=== PATIENT | male | born 1985 | race African-American/Black ===

== ENCOUNTER 2022-06-30 17:14 | Emergency (ER) | payer MEDICAID ==
[~2022-06-30] VITALS: Ht 175.3 cm; Wt 83.9 kg
[2022-06-30 19:40] VITALS: BP_SYST 146
--- NOTE | 2022-06-30 19:40 | NUR ---
Patient came in to the ER for evaluation of rt jaw pain since Thursday after falling over bushes. Patient does not recall the event. He says he fell but he cannot remember where he hit his face. Patient has difficulty opening his mouth and has a pain level of 9/10 PS . Took Tylenol without relief. Patient breathing easy, respirations even unlabored.
--- NOTE | 2022-06-30 19:46 | NUR ---
Patient triaged and placed in waiting room. VSS and patient appears in no acute distress at this time. Accompanied by self, awaiting available bed, and MD notified of need for MSE.
--- NOTE | 2022-06-30 21:45 | NUR ---
ER Dr.Dela Chan in triage examining patient.
[2022-06-30] MEDS ORDERED: IBUP-1971 PO (21:52)
[2022-06-30] MEDS ORDERED: AUG875 PO (21:52)
[2022-06-30] MEDS ORDERED: ONDA-8 TL (21:52)
[2022-06-30] MEDS ORDERED: HYDR-3917 PO (21:52)
[2022-06-30] MEDS ORDERED: HYDROcodone/ACETAMIN 5-325 MG TAB (NORCO/ VICODIN) PO ONE (22:30)
[2022-06-30 23:30] VITALS: BP_SYST 138
--- NOTE | 2022-06-30 23:30 | NUR ---
Patient given written and verbal discharge instructions and verbalizes understanding. ER MD discussed with patient the results and treatment provided. Patient in stable condition. Rx of Augmentin, [place] 5/325, Ibuprofen and Zofran ODT sent to pharmacy of choice by ER MD.Patient educated on pain management and to follow up with PMD. Opportunity for questions provided and answered. Xray CD given
== END 2022-06-30 23:30 | disposition home or self-care (01) ==
LOC: SED 17:14
DX: S02.651A Fracture of angle of right mandible, initial encounter for closed fracture (principal); Z79.899 Other long term (current) drug therapy; W01.0XXA Fall on same level from slipping, tripping and stumbling without subsequent striking against object, initial encounter; Y93.89 Activity, other specified; Y92.89 Other specified places as the place of occurrence of the external cause; Y99.8 Other external cause status
CPT/HCPCS: 70486-TC; 76376; 99284